=== PATIENT | female | born 1930 | race Caucasian/White ===

== ENCOUNTER 2018-10-15 13:19 | Inpatient (IN) | payer OTHER ==
--- NOTE | 2018-10-15 14:54 | PDOC ---
Attending Attestation - Resident Resident Name: Song Miller - ED Attending Attestation I have performed the following: I have examined & evaluated the patient, The case was reviewed & discussed with the resident, I agree w/resident's findings & plan, Exceptions are as noted - HPI HPI: 88 yo F history dementia, depression, HL, HTN, heart murmur presents s/p fall followed by LOC. As per family member at bedside, she went to her senior center today, they reported she tripped over another person's foot, no LOC. She boarded bus to go home later in the afternoon, where she was witnessed to have LOC, possibly a seizure as described by the internal combustion engine assembler (was unresponsive for a period of time). Patient does not recall any of the events. No post-ictal period. She denies any complaints at present. - Physicial Exam PE: GENERAL: Awake, alert, and fully oriented, in no acute distress HEAD: No signs of trauma EYES: PERRLA, EOMI, sclera anicteric, conjunctiva clear ENT: Auricles normal inspection, hearing grossly normal, nares patent, oropharynx clear without exudates. Moist mucosa NECK: Normal ROM, supple, no lymphadenopathy, JVD, or masses LUNGS: Breath sounds equal, clear to auscultation bilaterally. No wheezes, and no crackles HEART: Regular rate and rhythm, V/ systolic murmur heard best over second ICS ABDOMEN: Soft, nontender, normoactive bowel sounds. No guarding, no rebound. No masses EXTREMITIES: Normal range of motion, no edema. No clubbing or cyanosis. No cords, erythema, or tenderness NEUROLOGICAL: Cranial nerves II through XII grossly intact. Normal speech. Motor and sensation intact SKIN: Warm, dry, normal turgor, no rashes or lesions noted. - Medical Decision Making Pt is s/p fall, then a loss of consciousness later in the afternoon on the bus home. This is more likely syncope, as there was no post-ictal period, and she has no prior history. Also she has multiple cardiac risk factors- HTN, HL, and a murmur that is consistent with aortic stenosis. Will CT her head as we cannot confirm exactly what happened, need to r/o ICH. Will obtain cardiac workup. Plan for admission.
[2018-10-15 15:21] LABS: BASO % 0.3 % (0-2.0); EOS % 0.2 % (0-4.5); HEMATOCRIT 38.8 % (32.4-45.2); HEMOGLOBIN 12.4 GM/dL (10.7-15.3); LYMPH % 5.7 % (8-40); MCH 26.9 pg (25.7-33.7); MCHC 31.9 g/dl (32.0-36.0); MEAN CELL VOLUME 84.4 fl (80-96); MEAN PLT VOLUME 8.3 fl (7.5-11.1); MONO % 3.8 % (3.8-10.2); PLATELET COUNT 246 K/MM3 (134-434); RBC 4.59 M/mm3 (3.60-5.2); RDW 15.4 % (11.6-15.6); WHITE BLOOD COUNT 17.5 K/mm3 (4.0-10.0)
[2018-10-15 15:47] LABS: INR 0.98 (0.83-1.09); PROTHROMBIN TIME (PATIENT) 11.6 SEC (9.7-13.0)
--- NOTE | 2018-10-15 15:49 | PDOC ---
History of Present Illness - General Chief Complaint: Injury Stated Complaint: FALL Time Seen by Provider: 10/15/18 14:33 History Source: Patient, Family Exam Limitations: Dementia - History of Present Illness Initial Comments: 10/15/18 15:41 88F with a PMH of HLD, HTN, dementia, depression, heart murmur who presents to the ER via EMS for fall and possible syncope. The patient is with her son who helps provide the history as the patient does not recall everything that happened. The son states that he was called from her adult day care stating that she fell earlier today after tripping on someone's foot. On her way home as she got on the bus, she had a seizure vs syncope witnessed by the school bus driver. EMS and police were called and she was sent to our facility. She denies any acute complaints right now but states that her R thigh is sore. She denies syncope before/during/after her fall, CP, SOB, fever, chills, nausea, vomiting, cough, and dysuria. Past History - Past Medical History Allergies/Adverse Reactions: Allergies Allergy/AdvReac Type Severity Reaction Status Date / Time No Known Allergies Allergy Verified 07/15/11 21:32 Home Medications: Ambulatory Orders Simvastatin 20 mg PO DAILY 07/15/11 Cholecalciferol (Vitamin D3) [Vitamin D3 -] 2,000 unit PO DAILY 10/15/18 Donepezil HCl [Aricept -] 5 mg PO DAILY 10/15/18 Escitalopram Oxalate [Lexapro -] 10 mg PO DAILY 10/15/18 Ramipril [Altace] 2.5 mg PO DAILY 10/15/18 Anemia: Yes Asthma: No Cancer: No Cardiac Disorders: No CVA: No COPD: No CHF: No Dementia: No Diabetes: No GI Disorders: No Disorders: No HTN: Yes Hypercholesterolemia: No Liver Disease: No Seizures: No Thyroid Disease: No - Surgical History Abdominal Surgery: No Appendectomy: No Cardiac Surgery: No Cholecystectomy: No Lung Surgery: No Neurologic Surgery: No Orthopedic Surgery: No - Suicide/Smoking/Psychosocial Hx Smoking Status: No Smoking History: Unknown if ever smoked Have you smoked in the past 12 months: No Number of Cigarettes Smoked Daily: 0 Hx Alcohol Use: No Drug/Substance Use Hx: No Substance Use Type: None Hx Substance Use Treatment: No Review of Systems - Review of Systems Able to Perform ROS?: Yes Comments:: 10/15/18 16:21 GENERAL/CONSTITUTIONAL: + for fall. No fever or chills. No weakness. HEAD, EYES, EARS, NOSE AND THROAT: No change in vision. No ear pain or discharge. No sore throat. CARDIOVASCULAR: No chest pain, palpitations, or lightheadedness. RESPIRATORY: No cough, wheezing, shortness of breath, or hemoptysis. GASTROINTESTINAL: No abdominal pain, nausea, vomiting, diarrhea, or constipation. GENITOURINARY: No dysuria, frequency, hematuria, or change in urination. MUSCULOSKELETAL: No joint or muscle swelling or pain. No neck or back pain. SKIN: No rash or lesions. NEUROLOGIC: + for LOC. No headache, numbness, tingling, focal weakness, or change in strength/sensation. Is the patient limited Arabic proficient: No *Physical Exam - Vital Signs Last Vital Signs Temp Pulse Resp BP Pulse Ox 98.3 F 74 18 134/86 96 10/15/18 13:22 10/15/18 13:22 10/15/18 13:22 10/15/18 13:22 10/15/18 13:22 - Physical Exam Comments: 10/15/18 16:23 GENERAL: Well developed, well nourished. Awake and alert. No acute distress. HEENT: Normocephalic, atraumatic. Hearing grossly normal. Moist mucous membranes. PERRLA, EOMI. No conjunctival pallor. Sclera are non-icteric. NECK: Supple. Full ROM. No JVD. CARDIOVASCULAR: Regular rate and rhythm. No murmurs, rubs, or gallops. PULMONARY: No evidence of respiratory distress. Lungs clear to auscultation bilaterally. No wheezing, rales or rhonchi. ABDOMINAL: Soft. Non-tender. Non-distended. No rebound or guarding. GENITOURINARY: No CVA tenderness bilaterally. MUSCULOSKELETAL: Normal range of motion at all joints. No bony deformities or tenderness. EXTREMITIES: No cyanosis. No clubbing. No edema. No calf tenderness or swelling. SKIN: Warm and dry. Normal capillary refill. No rashes. No jaundice. NEUROLOGICAL: Alert, awake, appropriate. Cranial nerves 2-12 intact. No deficits to light touch and temperature in face, upper extremities and lower extremities. 5/5 strength in deltoids, biceps, triceps, quadriceps, hamstrings, and gastrocnemius. Normal speech. Gait is normal without ataxia. PSYCHIATRIC: Cooperative. Good eye contact. Appropriate mood and affect. ED Treatment Course - LABORATORY CBC & Chemistry Diagram: 10/15/18 15:00 10/15/18 15:00 - ADDITIONAL ORDERS Additional order review: 10/15/18 15:00 RBC 4.59 MCV 84.4 MCHC 31.9 L RDW 15.4 MPV 8.3 Neutrophils % 90.0 H Lymphocytes % 5.7 L Monocytes % 3.8 Eosinophils % 0.2 Basophils % 0.3 - RADIOLOGY Radiology Studies Ordered: Category Date Time Status HEAD CT WITHOUT CONTRAST [CT] Stat CT Scan 10/15/18 14:47 Completed CHEST - PA [RAD] Stat Radiology 10/15/18 14:48 Ordered FEMUR-RIGHT [RAD] Stat Radiology 10/15/18 14:48 Ordered HIP & PELVIS-RIGHT [RAD] Stat Radiology 10/15/18 14:48 Ordered PELVIS [RAD] Stat Radiology 10/15/18 14:48 Ordered Medical Decision Making - Medical Decision Making 10/15/18 16:23 88F with MMP who presents after having a syncopal vs seizure episode and a fall. Concern for infectious vs cardiac etiology. Will obtain labs and CTH w/ CXR. Pending labs and imaging. Pt well appearing otherwise with son at bedside. 10/15/18 19:03 Pt unable to ambulate. XR's negative. CTH negative. Will obtain pelvic CT. Microblogged for admission. Pt endorsed to Dr. Nugent for admission. *DC/Admit/Observation/Transfer Diagnosis at time of Disposition: Syncope and collapse - Discharge Dispostion Condition at time of disposition: Guarded Decision to Admit order: Yes - Referrals Referrals: Manuel Kinney MD [Primary Care Provider] - - Patient Instructions - Post Discharge Activity
[2018-10-15 16:03] LABS: ALBUMIN 3.7 g/dl (3.4-5.0); ALK PHOS 107 U/L (45-117); ANION GAP 7 MMOL/L (8-16); BILIRUBIN,TOTAL 0.8 mg/dL (0.2-1); BLOOD UREA NITROGEN 18.6 mg/dL (7-18); CHLORIDE 104 mmol/L (98-107); CO2 30 mmol/L (21-32); CREATININE 0.6 mg/dL (0.55-1.3); GLUCOSE,RANDOM 106 mg/dL (74-106); POTASSIUM 4.7 mmol/L (3.5-5.1); SGOT/AST 30 U/L (15-37); SGPT/ALT 16 U/L (13-61); SODIUM 141 mmol/L (136-145); TOT PROT 7.2 g/dl (6.4-8.2)
--- NOTE | 2018-10-15 20:26 | HP ---
CHIEF COMPLAINT: syncopal episode PCP: Dr. Kinney HISTORY OF PRESENT ILLNESS: History obtained with son Jamie at bedside ). Patient is an 88 year old female with history of hypertension, hyperlipidemia, dementia, depression, aortic stenosis, presents after a syncopal episode. Patient's family at bedside state that earlier today (approx. 11AM), the patient experienced a mechanical fall after tripping over pair of shoes. Per the facility staff patient did not hit her head, and was immediately helped up. She endorsed only a 'stiff hip' on the right side at that time. After eating lunch (approx. 12:30PM) patient was taken onto a bus where she experienced feeling lightheaded and became unresponsive for approx. 2 minutes. Patient was sat down on the bus. Patient did not loose bowel or bladder incontinence. Did not bite her tongue. As patient regained consciousness, she was noted to be immediately alert, without post-ictal or confusion state. No history of prior seizures. No recent medication changes. Currently, patient admits right sided hip pain, that is exacerbated by movement. Denies subjective fevers , chills, shortness of breath, chest pain, palpitations, abdominal pain, nausea, vomiting. ER course was notable for: (1) CT head negative for intracranial pathology (2) CT pelvis reveals right inferior pubic ramus and ischiopubic junction fracture (3) Recent Travel: denies PAST MEDICAL HISTORY: hypertension, hyperlipidemia, dementia, depression, aortic stenosis PAST SURGICAL HISTORY: colon perforation repair approx 25 years ago. Social History: Smoking: admits ;heavy smoking' for approx 25 years. Quit 37 years ago. Alcohol: denies Drugs: tracie Lives in [place], visited by her son daily who assists with activities daily living. At baseline, patient ambulates without cane or walker. Family History: Noncontributory. Mother lived until 99 years old father lived until 94 years old. Denies cardiac, or cancer family history. Allergies No Known Allergies Allergy (Verified 07/15/11 21:32) HOME MEDICATIONS: Home Medications Medication Instructions Recorded Simvastatin 20 mg PO DAILY 07/15/11 Cholecalciferol (Vitamin D3) 2,000 unit PO DAILY 10/15/18 [Vitamin D3 -] Donepezil HCl [Aricept -] 5 mg PO DAILY 10/15/18 Escitalopram Oxalate [Lexapro -] 10 mg PO DAILY 10/15/18 Ramipril [Altace] 2.5 mg PO DAILY 10/15/18 REVIEW OF SYSTEMS CONSTITUTIONAL: Absent: fever, chills, diaphoresis, generalized weakness, malaise, loss of appetite, weight change HEENT: Absent: rhinorrhea, nasal congestion, throat pain, throat swelling, difficulty swallowing, mouth swelling, ear pain, eye pain, visual changes CARDIOVASCULAR: Absent: chest pain, syncope, palpitations, irregular heart rate, lightheadedness , peripheral edema RESPIRATORY: Absent: cough, shortness of breath, dyspnea with exertion, orthopnea, wheezing, stridor, hemoptysis GASTROINTESTINAL: Absent: abdominal pain, abdominal distension, nausea, vomiting, diarrhea, constipation, melena, hematochezia GENITOURINARY: Absent: dysuria, frequency, urgency, hesitancy, hematuria, flank pain, genital pain MUSCULOSKELETAL: Admits: right hip pain, soreness. SKIN: Absent: rash, itching, pallor HEMATOLOGIC/IMMUNOLOGIC: Absent: easy bleeding, easy bruising, lymphadenopathy, frequent infections ENDOCRINE: Absent: unexplained weight gain, unexplained weight loss, heat intolerance, cold intolerance NEUROLOGIC: Absent: headache, focal weakness or paresthesias, dizziness, unsteady gait, seizure, mental status changes, bladder or bowel incontinence PSYCHIATRIC: Absent: anxiety, depression, suicidal or homicidal ideation, hallucinations. PHYSICAL EXAMINATION Vital Signs - 24 hr 10/15/18 10/15/18 13:22 19:26 Temperature 98.3 F 97.6 F Pulse Rate 74 Pulse Rate [ 66 Right Superficial Temporal] Respiratory 18 Rate Blood Pressure 134/86 Blood Pressure 147/82 [Left Arm] O2 Sat by Pulse 96 93 L Oximetry (%) GENERAL: Awake, alert, and oriented to self, in no acute distress. HEAD: Normal with no signs of trauma. EYES: Pupils equal, round and reactive to light, extraocular movements intact, sclera anicteric, conjunctiva clear EARS, NOSE, THROAT: Oropharynx clear without exudates. Moist mucous membranes. NECK: Normal range of motion, supple without lymphadenopathy, JVD, or masses. LUNGS: Breath sounds equal, clear to auscultation bilaterally. No wheezes, and no crackles. No accessory muscle use. HEART: Regular rate and rhythm, normal S1 and S2. Holosystolic murmur appreciated at left upper sternal border. ABDOMEN: Soft, nontender, not distended, normoactive bowel sounds, no guarding, no rebound, no masses. No hepatomegaly or splenomegaly. MUSCULOSKELETAL: Tenderness to palpation at right hip. UPPER EXTREMITIES: 2+ radial pulses bilaterally, warm, well-perfused. LOWER EXTREMITIES: 2+ dorsalis pedis pulses bilaterally, warm, well-perfused. No peripheral edema. NEUROLOGICAL: Cranial nerves II-XII intact. Normal speech. PSYCHIATRIC: Cooperative. Appropriate mood and affect. SKIN: Warm, dry. Laboratory Results - last 24 hr 10/15/18 10/15/18 10/15/18 15:00 15:00 15:00 WBC 17.5 H RBC 4.59 Hgb 12.4 Hct 38.8 MCV 84.4 MCH 26.9 MCHC 31.9 L RDW 15.4 Plt Count 246 MPV 8.3 Absolute Neuts (auto) 15.7 H Neutrophils % 90.0 H Lymphocytes % 5.7 L Monocytes % 3.8 Eosinophils % 0.2 Basophils % 0.3 Nucleated RBC % 0 PT with INR 11.60 INR 0.98 Sodium 141 Potassium 4.7 Chloride 104 Carbon Dioxide 30 Anion Gap 7 L BUN 18.6 H Creatinine 0.6 Est GFR (CKD-EPI)AfAm 93.66 Est GFR (CKD-EPI)NonAf 80.81 Random Glucose 106 Calcium 9.0 Total Bilirubin 0.8 AST 30 ALT 16 Alkaline Phosphatase 107 Creatine Kinase 148 Troponin I < 0.02 Total Protein 7.2 Albumin 3.7 ASSESSMENT/PLAN: Patient is an 88 year old female with history of hypertension, hyperlipidemia, dementia, depression, aortic stenosis, presents after a syncopal episode. Syncopal episode -Uncertain etiology of the episode; most likely cardiogenic given history of aortic stenosis. Less likely seizure, as patient was not post-ictal. WBC count 17.5 however likely reactive to the fracture. Will monitor off antibiotics, and repeat -CT head negative for acute intracranial pathology -EKG -Troponin 0.02. Will follow. -Cardiac ECHO -Cardiology (Dr. theodore) consult -Telemetry monitoring -Orthostatic blood pressure -Ofirmev 1000mg IV Q6 hours for pain control Fracture -CT pelvis reveals right inferior pubic ramus fracture and, right superior ischiopubic junction fracture -Orthopedic surgery (Dr. Hunt) consulted -Strict bed rest -NPO -Type and cross, coagulation studies ordered in anticipation of possible surgical procedure Dementia -Continue home Donepezil 5mg PO daily -Continue Escitalopram 10mg PO daily Hyperlipidemia -Continue Simvastatin 20mg PO daily Right adnexal cyst -Incidental finding on CT. Patient will follow up with OBGYN outpatient Hypertension -Continue home Ramipril 2.5mg PO daily FEN -IV normal saline at 75mL/ hour -Follow CMP -NPO after midnight pending orthopedic surgery consult Prophylaxis -Heparin 5000u subq TID. Will hold after midnight pending orthopedic surgery consult Disposition -Admit Telemetry for observation. Visit type - Emergency Visit Emergency Visit: Yes ED Registration Date: 10/15/18 Care time: The patient presented to the Emergency Department on the above date and was hospitalized for further evaluation of their emergent condition. - New Patient This patient is new to me today: Yes Date on this admission: 10/16/18 - Critical Care Critical Care patient: No ATTENDING PHYSICIAN STATEMENT I saw and evaluated the patient. I reviewed the resident's note and discussed the case with the resident. I agree with the resident's findings and plan as documented. SUBJECTIVE: OBJECTIVE: ASSESSMENT AND PLAN:
[2018-10-15] MEDS ORDERED: SODIUM CHLORIDE 1,000 ML IV SCH (20:30)
--- NOTE | 2018-10-15 22:22 | PN ---
Teaching Attending Note Name of Resident: Thai Roman ATTENDING PHYSICIAN STATEMENT I saw and evaluated the patient. Chart, data, imaging reviewed. I reviewed the resident's note and discussed the case with the resident. I agree with the resident's findings and plan as documented. SUBJECTIVE: 88 year old female with history of hypertension, hyperlipidemia, dementia, depression, aortic stenosis brought in by EMS after mechanical fall earlier in day, after tripping over pair of shoes, followed by syncopal episode while on bus. She felt lightheaded prior to syncope but did not experience any palpitations. OBJECTIVE: Last Vital Signs Temp Pulse Resp BP Pulse Ox 97.6 F 74 18 146/74 95 10/15/18 23:51 10/15/18 23:51 10/15/18 13:22 10/15/18 23:51 10/15/18 23:51 general- nad, nontoxic heent- atraumatic neck supple, no cervical tenderness cv -s1+, s2+ rrr, systolic crescendo-decrescendo murmur chest- cta b/l abdomen - soft, nt ext no tenderness of palpation Abnormal Lab Results 10/15/18 10/15/18 15:00 15:00 WBC 17.5 H MCHC 31.9 L Absolute Neuts (auto) 15.7 H Neutrophils % 90.0 H Lymphocytes % 5.7 L Anion Gap [address] head negative for intracranial pathology CT pelvis reveals right inferior pubic ramus and ischiopubic junction fracture ekg -nsr, LVH , left axis deviation ASSESSMENT AND PLAN: #mechanical fall + syncope episode in elderly demented woman, complicated by fracture of right inferior pubic ramus. Fracture likely related to previous fall. Syncopal episode by be secondary to underlying aortic stenosis. Other causes include orthostatic hypotension, vasogal syncopal. tros wnl. -tele-obs -fall precautions -bed rest -check orthostatics -gentle IV fluid hydration -Echo -asssess for worsening of aortic stenosis -cardiology eval- for possible aortic valve replacement -orthopedics consult for pubic ramus fracture -dvt ppx -heparin sc
[2018-10-15] MEDS ORDERED: ACETAMINOPHEN INJECTION 100 ML IVPB ONE (22:30)
[2018-10-15] MEDS ORDERED: HEPARIN NA (PORCINE) 5,000 UNITS/ML 1ML VIAL ONE (22:31)
[2018-10-15] MEDS: HEPARIN NA (PORCINE) 5,000 UNITS/ML 1ML VIAL SQ SCH (22:59)
[2018-10-15] MEDS: ACETAMINOPHEN 1000 MG/100 ML VIAL (NON FORMULARY) IVPB PRN (23:00)
[2018-10-16] MEDS ORDERED: ACETAMINOPHEN INJECTION 100 ML IVPB ONE (06:29)
[2018-10-16] MEDS ORDERED: HEPARIN NA (PORCINE) 5,000 UNITS/ML 1ML VIAL ONE (06:29)
[2018-10-16] MEDS: HEPARIN NA (PORCINE) 5,000 UNITS/ML 1ML VIAL SQ SCH ×3 (06:43→22:44)
[2018-10-16] MEDS: ACETAMINOPHEN 1000 MG/100 ML VIAL (NON FORMULARY) IVPB PRN (06:43)
[2018-10-16] MEDS: DONEPEZIL HCL 5 MG TABLET (FP) PO SCH (09:14)
[2018-10-16] MEDS: ESCITALOPRAM OXALATE 10 MG TABLET (FP) PO SCH (09:14)
[2018-10-16] MEDS: RAMIPRIL 2.5 MG CAPSULE (FP) PO SCH (09:14)
[2018-10-16 09:32] LABS: HEMATOCRIT 31.7 % (32.4-45.2); HEMOGLOBIN 10.5 GM/dL (10.7-15.3); MCH 27.7 pg (25.7-33.7); MEAN PLT VOLUME 8.2 fl (7.5-11.1); PLATELET COUNT 203 K/MM3 (134-434); RBC 3.78 M/mm3 (3.60-5.2); RDW 15.3 % (11.6-15.6); WHITE BLOOD COUNT 8.8 K/mm3 (4.0-10.0)
[2018-10-16 09:46] LABS: INR 1.12 (0.83-1.09); PROTHROMBIN TIME (PATIENT) 13.2 SEC (9.7-13.0)
[2018-10-16 09:48] LABS: ACTIVATED PTT 44.8 SECONDS (25.2-36.5)
[2018-10-16] MEDS ORDERED: PATIENT'S OWN MEDICATION (NON-FORMULARY) (Simvastatin [Simvastatin] 20 MG) PO SCH (10:00)
[2018-10-16 10:15] LABS: ALBUMIN 3.3 g/dl (3.4-5.0); BILIRUBIN,TOTAL 1.4 mg/dL (0.2-1); CALCIUM 8.7 mg/dL (8.5-10.1); CREATININE 0.6 mg/dL (0.55-1.3); MAGNESIUM 2.2 mg/dL (1.8-2.4); PHOSPHOROUS 3.2 mg/dL (2.5-4.9); POTASSIUM 4.8 mmol/L (3.5-5.1); TOT PROT 6.2 g/dl (6.4-8.2)
--- NOTE | 2018-10-16 11:59 | DS ---
Physical Exam: SUBJECTIVE: Patient seen and examined OBJECTIVE: Vital Signs Period Temp Pulse Resp BP Sys/Marks Pulse Ox Last 24 Hr 97.6 F-98.3 F 66-75 16-18 124-152/64-86 93-96 PHYSICAL EXAM GENERAL: The patient is awake, alert, and fully oriented, in no acute distress. HEAD: Normal with no signs of trauma. EYES: PERRL, extraocular movements intact, sclera anicteric, conjunctiva clear. ENT: Ears normal, nares patent, oropharynx clear without exudates, moist mucous membranes. NECK: Trachea midline, full range of motion, supple. LUNGS: Breath sounds equal, clear to auscultation bilaterally, no wheezes, no crackles, no accessory muscle use. HEART: Regular rate and rhythm, S1, S2 without murmur, rub or gallop. ABDOMEN: Soft, nontender, nondistended, normoactive bowel sounds, no guarding, no rebound, no hepatosplenomegaly, no masses. EXTREMITIES: 2+ pulses, warm, well-perfused, no edema. NEUROLOGICAL: Cranial nerves II through XII grossly intact. Normal speech, gait not observed. PSYCH: Normal mood, normal affect. SKIN: Warm, dry, normal turgor, no rashes or lesions noted. LABS Laboratory Results - last 24 hr 10/15/18 10/15/18 10/15/18 15:00 15:00 15:00 WBC 17.5 H RBC 4.59 Hgb 12.4 Hct 38.8 MCV 84.4 MCH 26.9 MCHC 31.9 L RDW 15.4 Plt Count 246 MPV 8.3 Absolute Neuts (auto) 15.7 H Neutrophils % 90.0 H Lymphocytes % 5.7 L Monocytes % 3.8 Eosinophils % 0.2 Basophils % 0.3 Nucleated RBC % 0 PT with INR 11.60 INR 0.98 PTT (Actin FS) Sodium 141 Potassium 4.7 Chloride 104 Carbon Dioxide 30 Anion Gap 7 L BUN 18.6 H Creatinine 0.6 Est GFR (CKD-EPI)AfAm 93.66 Est GFR (CKD-EPI)NonAf 80.81 Random Glucose 106 Calcium 9.0 Phosphorus Magnesium Total Bilirubin 0.8 AST 30 ALT 16 Alkaline Phosphatase 107 Creatine Kinase 148 Troponin I < 0.02 Total Protein 7.2 Albumin 3.7 Blood Type Antibody Screen 09/07/2810/16/18 10/16/18 20:25 08:55 08:55 WBC 8.8 RBC 3.78 Hgb 10.5 L Hct 31.7 L D MCV 84.0 MCH 27.7 MCHC 33.0 RDW 15.3 Plt Count 203 MPV 8.2 Absolute Neuts (auto) Neutrophils % Lymphocytes % Monocytes % Eosinophils % Basophils % Nucleated RBC % PT with INR 13.20 H INR 1.12 H PTT (Actin FS) 44.8 H Sodium Potassium Chloride Carbon Dioxide Anion Gap BUN Creatinine Est GFR (CKD-EPI)AfAm Est GFR (CKD-EPI)NonAf Random Glucose Calcium Phosphorus Magnesium Total Bilirubin AST ALT Alkaline Phosphatase Creatine Kinase Troponin I < 0.02 Total Protein Albumin Blood Type Antibody Screen 10/16/18 10/16/18 08:55 08:55 WBC RBC Hgb Hct MCV MCH MCHC RDW Plt Count MPV Absolute Neuts (auto) Neutrophils % Lymphocytes % Monocytes % Eosinophils % Basophils % Nucleated RBC % PT with INR INR PTT (Actin FS) Sodium 145 Potassium 4.8 Chloride 106 Carbon Dioxide 31 Anion Gap 8 BUN 20.0 H Creatinine 0.6 Est GFR (CKD-EPI)AfAm 93.66 Est GFR (CKD-EPI)NonAf 80.81 Random Glucose 102 Calcium 8.7 Phosphorus 3.2 Magnesium 2.2 Total Bilirubin 1.4 H AST 18 ALT 12 L Alkaline Phosphatase 88 Creatine Kinase Troponin I Total Protein 6.2 L Albumin 3.3 L Blood Type O POSITIVE Antibody Screen Negative HOSPITAL COURSE: Date of Admission:10/15/18 Date of Discharge: 10/16/18 admitting diagnosis: syncope, pelvic fracture Pre hospital course Patient is an 88 year old female with history of hypertension, hyperlipidemia, dementia, depression, aortic stenosis, presents after a syncopal episode. Patient's family at bedside state that earlier today (approx. 11AM), the patient experienced a mechanical fall after tripping over pair of shoes. Per the facility staff patient did not hit her head, and was immediately helped up. She endorsed only a 'stiff hip' on the right side at that time. After eating lunch (approx. 12:30PM) patient was taken onto a bus where she experienced feeling lightheaded and became unresponsive for approx. 2 minutes. Patient was sat down on the bus. Patient did not loose bowel or bladder incontinence. Did not bite her tongue. As patient regained consciousness, she was noted to be immediately alert, without post-ictal or confusion state. No history of prior seizures. No recent medication changes. Currently, patient admits right sided hip pain, that is exacerbated by movement. Denies subjective fevers , chills, shortness of breath, chest pain, palpitations, abdominal pain, nausea, vomiting. Subsequent hospital course Minutes to complete discharge: 40 Discharge Summary Reason For Visit: SYNCOPE AND COLLAPSE Current Active Problems Pelvic fracture (Acute) Syncope and collapse (Acute) Condition: Guarded - Instructions Diet, Activity, Other Instructions: You came to the hospital because you passed out and syncopized. On workup here it was found you had 2 pelvic fractures. You requested to be [facility] to [facility]. Dr Zamora accepted your care Follow up recommendations given by the hospital follow up with your primary care doctor after discharge from their facility Referrals: Manuel Kinney MD [Primary Care Provider] - Disposition: TRANSFER ACUTE CARE/OTHER HOSP - Home Medications Comprehensive Discharge Medication List: Ambulatory Orders Simvastatin 20 mg PO DAILY 07/15/11 Cholecalciferol (Vitamin D3) [Vitamin D3 -] 2,000 unit PO DAILY 10/15/18 Donepezil HCl [Aricept -] 5 mg PO DAILY 10/15/18 Escitalopram Oxalate [Lexapro -] 10 mg PO DAILY 10/15/18 Ramipril [Altace] 2.5 mg PO DAILY 10/15/18
--- NOTE | 2018-10-16 13:33 | CON.CARD ---
Consult Consult Specialty:: Cardiology Referred by:: Hospitalist Reason for Consultation:: Cardiac evaluation - History of Present Illness Chief Complaint: ? syncope vs. mechanical fall History of Present Illness: Patient is an 88 year old female with underlying history of HTN, hypercholesterolemia and aortic stenosis (according to echocardiography in June 2017) who presents after a mechanical fall yesterday. She states that she tripped over a pair of shoes and it occurred in the morning. Later yesterday as she was taken onto a bus, she experienced lightheadedness and became unresponsive for approximately 2 minutes. She did not experience incontinence or any seizure activities. She did not complain of chest pain, shortness of breath or palpitations. Currently, she is asymptomatic. Hip and femur xray did not reveal any fractures, however; pelvic CT revealed right pubic ramus fracture. Prior echocardiography in June 2017 revealed normal LV systolic function, modertate and moderate MR. Currently, denies fever or chills. Denies nausea, vomiting, diarrhea or abdominal pain. Denies headache or lightheadedness. Family member had called for a transfer to [facility] for further medical care. - History Source History Provided By: Patient, Family Member, Medical Record Limitations to Obtaining History: Dementia - Past Medical History GRAD INTERN: Yes: Dementia Cardio/Vascular: Yes: Aortic Stenosis, HTN, Hyperlipdemia, Mitral Insufficiency - Past Surgical History Additional Surgical History: Colon surgery - Alcohol/Substance Use Hx Alcohol Use: No History of Substance Use: reports: None - Smoking History Smoking history: Former smoker Have you smoked in the past 12 months: No Aproximately how many cigarettes per day: 0 Home Medications - Allergies Allergies/Adverse Reactions: Allergies Allergy/AdvReac Type Severity Reaction Status Date / Time No Known Allergies Allergy Verified 07/15/11 21:32 - Home Medications Home Medications: Ambulatory Orders Simvastatin 20 mg PO DAILY 07/15/11 Cholecalciferol (Vitamin D3) [Vitamin D3 -] 2,000 unit PO DAILY 10/15/18 Donepezil HCl [Aricept -] 5 mg PO DAILY 10/15/18 Escitalopram Oxalate [Lexapro -] 10 mg PO DAILY 10/15/18 Ramipril [Altace] 2.5 mg PO DAILY 10/15/18 Review of Systems - Review of Systems Constitutional: denies: Chills, Fever Cardiovascular: denies: Chest Pain, Palpitations, Shortness of Breath Respiratory: denies: Cough, Hemoptysis, Orthopnea, PND, SOB, SOB on Exertion Gastrointestinal: denies: Abdominal Pain, Constipation, Diarrhea, Melena, Nausea , Rectal Bleeding, Vomiting Neurological: reports: Syncope. denies: Dizziness, Headache, Seizure Vital Signs: Vital Signs Temperature 98.2 F 10/16/18 13:28 Pulse Rate 73 10/16/18 13:28 Respiratory Rate 18 10/16/18 07:51 Blood Pressure 133/66 10/16/18 13:28 O2 Sat by Pulse Oximetry (%) 93 L 10/16/18 13:28 Eyes: Yes: PERRL HENT: Yes: Atraumatic Neck: Yes: Supple Respiratory: Yes: CTA Bilaterally Gastrointestinal: Yes: Normal Bowel Sounds, Soft. No: Tenderness Cardiovascular: Yes: Regular Rate and Rhythm JVD: No PMI: Non-Displaced Heart Sounds: Yes: S1, S2 Murmur: Yes: Systolic Murmur, Grade 2 Edema: No - Other Data Labs, Other Data: CBC, BMP 10/16/18 08:55 10/16/18 08:55 INR, PTT INR 1.12 (0.83-1.09) H 10/16/18 08:55 Troponin, BNP 10/15/18 10/15/18 15:00 20:25 Troponin I < 0.02 < 0.02 Laboratory Results - last 24 hr 10/15/18 10/15/18 10/15/18 15:00 15:00 15:00 WBC 17.5 H RBC 4.59 Hgb 12.4 Hct 38.8 MCV 84.4 MCH 26.9 MCHC 31.9 L RDW 15.4 Plt Count 246 MPV 8.3 Absolute Neuts (auto) 15.7 H Neutrophils % 90.0 H Lymphocytes % 5.7 L Monocytes % 3.8 Eosinophils % 0.2 Basophils % 0.3 Nucleated RBC % 0 PT with INR 11.60 INR 0.98 PTT (Actin FS) Sodium 141 Potassium 4.7 Chloride 104 Carbon Dioxide 30 Anion Gap 7 L BUN 18.6 H Creatinine 0.6 Est GFR (CKD-EPI)AfAm 93.66 Est GFR (CKD-EPI)NonAf 80.81 Random Glucose 106 Calcium 9.0 Phosphorus Magnesium Total Bilirubin 0.8 AST 30 ALT 16 Alkaline Phosphatase 107 Creatine Kinase 148 Troponin I < 0.02 Total Protein 7.2 Albumin 3.7 Blood Type Antibody Screen 10/15/18 10/16/18 10/16/18 20:25 08:55 08:55 WBC 8.8 RBC 3.78 Hgb 10.5 L Hct 31.7 L D MCV 84.0 MCH 27.7 MCHC 33.0 RDW 15.3 Plt Count 203 MPV 8.2 Absolute Neuts (auto) Neutrophils % Lymphocytes % Monocytes % Eosinophils % Basophils % Nucleated RBC % PT with INR 13.20 H INR 1.12 H PTT (Actin FS) 44.8 H Sodium Potassium Chloride Carbon Dioxide Anion Gap BUN Creatinine Est GFR (CKD-EPI)AfAm Est GFR (CKD-EPI)NonAf Random Glucose Calcium Phosphorus Magnesium Total Bilirubin AST ALT Alkaline Phosphatase Creatine Kinase Troponin I < 0.02 Total Protein Albumin Blood Type Antibody Screen 10/16/18 10/16/18 08:55 08:55 WBC RBC Hgb Hct MCV MCH MCHC RDW Plt Count MPV Absolute Neuts (auto) Neutrophils % Lymphocytes % Monocytes % Eosinophils % Basophils % Nucleated RBC % PT with INR INR PTT (Actin FS) Sodium 145 Potassium 4.8 Chloride 106 Carbon Dioxide 31 Anion Gap 8 BUN 20.0 H Creatinine 0.6 Est GFR (CKD-EPI)AfAm 93.66 Est GFR (CKD-EPI)NonAf 80.81 Random Glucose 102 Calcium 8.7 Phosphorus 3.2 Magnesium 2.2 Total Bilirubin 1.4 H AST 18 ALT 12 L Alkaline Phosphatase 88 Creatine Kinase Troponin I Total Protein 6.2 L Albumin 3.3 L Blood Type O POSITIVE Antibody Screen Negative NSR, nonspecific intraventricular conduction delay Imaging - Results Chest X-ray: Report Reviewed (Unremarkable) X-ray: Report Reviewed (Hip and femur xray no fracture) Cat Scan: Report Reviewed (Head CT unremarkable Pelvic CT right pubic ramus fracture) EKG: Report Reviewed Problem List - Problems (1) HTN (hypertension) Code(s): I10 - ESSENTIAL (PRIMARY) HYPERTENSION (2) Hypercholesterolemia Code(s): E78.00 - PURE HYPERCHOLESTEROLEMIA, UNSPECIFIED (3) Aortic valve stenosis Code(s): I35.0 - NONRHEUMATIC AORTIC (VALVE) STENOSIS Qualifiers: Cardiac valve disease etiology: nonrheumatic Qualified Code(s): I35.0 - Nonrheumatic aortic (valve) stenosis (4) Mitral valve regurgitation Code(s): I34.0 - NONRHEUMATIC MITRAL (VALVE) INSUFFICIENCY Qualifiers: Cardiac valve disease etiology: nonrheumatic Qualified Code(s): I34.0 - Nonrheumatic mitral (valve) insufficiency (5) Pelvic fracture Code(s): S32.9XXA - FRACTURE OF UNSP PARTS OF LUMBOSACRAL SPINE AND PELVIS, INIT (6) Syncope and collapse Code(s): R55 - SYNCOPE AND COLLAPSE Assessment/Plan 1. Post mechanical fall resulting in pubic ramus fracture 2. Syncope 3. Moderate (prior echocardiography) 4. HTN 5. Hypercholesterolemia 6. Dementia PLAN: 1. Patient is being transferred to [facility] as per family decision 2. Patient will need a transthoracic echocardiography to assess LV/RV and valvular function especially aortic valve stenosis. If it is not done inpatient , they were offered to be followed up in the office for an outpatient stud 3. Continue ACEI as tolerated 4. Statin therapy may be continued 5. Fall precaution 6. Likely bed rest for now for the pubic ramus fracture Further plans are to follow. Thank you for the consultation Giuseppe Mcdaniel MD
--- NOTE | 2018-10-16 14:07 | PN ---
Progress Note (short form) - Note Progress Note: asymptomatic. states she had no symptoms prior to the fall. was c/o R hip pain after the fall and inability to bear weight.denies CP, SOB, fever, chills, N/V/C /D Current Medications Generic Name Dose Route Start Last Admin Trade Name Freq PRN Reason Stop Dose Admin Acetaminophen 1,000 mg 10/15/18 21:16 10/16/18 06:43 Ofirmev Injection - IVPB 1,000 mg Q6H PRN Administration PAIN LEVEL 1-5 Atorvastatin Calcium 10 mg 10/16/18 22:00 Lipitor - PO HS BRIAN Donepezil HCl 5 mg 10/16/18 10:00 10/16/18 09:14 Aricept - PO 5 mg DAILY BRIAN Administration Escitalopram Oxalate 10 mg 10/16/18 10:00 10/16/18 09:14 Lexapro - PO 10 mg DAILY BRIAN Administration Heparin Sodium (Porcine) 5,000 unit 10/15/18 22:00 10/16/18 06:43 Heparin - SQ 5,000 unit TID BRIAN Administration Ramipril 2.5 mg 10/16/18 10:00 10/16/18 09:14 Altace - PO 2.5 mg DAILY BRIAN Administration Last Vital Signs Temp Pulse Resp BP Pulse Ox 98.2 F 73 18 133/66 93 L 10/16/18 13:28 10/16/18 13:28 10/16/18 07:51 10/16/18 13:28 10/16/18 13:28 General NAD, [place], A&O to self only CV S1 S2 RRR +murmur Lungs CTA anteriorly abdomen soft NT/ND extremities non pitting edema. no R hip tenderness. decreased strength RLE 2/5, sensation intact. pulse 2+ CBCD WBC 8.8 K/mm3 (4.0-10.0) 10/16/18 08:55 RBC 3.78 M/mm3 (3.60-5.2) 10/16/18 08:55 Hgb 10.5 GM/dL (10.7-15.3) L 10/16/18 08:55 Hct 31.7 % (32.4-45.2) L D 10/16/18 08:55 MCV 84.0 fl (80-96) 10/16/18 08:55 MCHC 33.0 g/dl (32.0-36.0) 10/16/18 08:55 RDW 15.3 % (11.6-15.6) 10/16/18 08:55 Plt Count 203 K/MM3 (134-434) 10/16/18 08:55 MPV 8.2 fl (7.5-11.1) 10/16/18 08:55 CMP Sodium 145 mmol/L (136-145) 10/16/18 08:55 Potassium 4.8 mmol/L (3.5-5.1) 10/16/18 08:55 Chloride 106 mmol/L (98-107) 10/16/18 08:55 Carbon Dioxide 31 mmol/L (21-32) 10/16/18 08:55 Anion Gap 8 MMOL/L (8-16) 10/16/18 08:55 BUN 20.0 mg/dL (7-18) H 10/16/18 08:55 Creatinine 0.6 mg/dL (0.55-1.3) 10/16/18 08:55 Calcium 8.7 mg/dL (8.5-10.1) 10/16/18 08:55 Total Bilirubin 1.4 mg/dL (0.2-1) H 10/16/18 08:55 AST 18 U/L (15-37) 10/16/18 08:55 ALT 12 U/L (13-61) L 10/16/18 08:55 Alkaline Phosphatase 88 U/L (45-117) 10/16/18 08:55 Total Protein 6.2 g/dl (6.4-8.2) L 10/16/18 08:55 Albumin 3.3 g/dl (3.4-5.0) L 10/16/18 08:55 A/P 88yo F wtih PMH hypertension, hyperlipidemia, dementia, depression, aortic stenosis, presents after a syncopal episode and found to have pelvic fracture x2 1. Syncope vs mechanical fall- unclear if she had symptoms prior to event as pt is a poor historian,. appears to have known moderate in 2018 and could play a role. will place on cardiac monitoring, check echo. may need valve surgery. cardio on board 2. Acute pelvic fracture- right inferior pubic ramus and ischiopubic junction fracture due to fall. NWB and bedrest for now. pain control. likely not operable. ortho consulted. will need PT assessment may likely benefit from ANGEL 3. Leukcytosis- likely reactive. now resolved. will check UA as this can also add to HPI. will hold abx at this time 4. ANemia- likely dilutional. no signs of bleeding. no indication for transfusion 5. HTN- resume home medications 6. Dyslipidemia- statin 7. dementia- as per son seems more confused than baseline but states "shes nervous" but is typically A&O x3. cont home medication 8. DVT ppx- hep sq 9. spoke with son present at bedside. all questions answered. initially wanted transfer to [place] becuase it was taking too long to get bed upstairs and was accepted however now willing to stay. agreeable to ANGEL if necessary Visit type - Emergency Visit Emergency Visit: Yes ED Registration Date: 10/15/18 Care time: The patient presented to the Emergency Department on the above date and was hospitalized for further evaluation of their emergent condition. - New Patient This patient is new to me today: Yes Date on this admission: 10/16/18 - Critical Care Critical Care patient: No - Discharge Referral Referred to [facility] Med P.C.: No
[2018-10-16] MEDS ORDERED: ACETAMINOPHEN 325 MG TABLET (FP) PO PRN (14:16)
[2018-10-16 15:06] VITALS: BMI 29.0
[2018-10-16] MEDS ORDERED: HALOPERIDOL LACTATE 5 MG/ML IM ONE (20:53)
--- NOTE | 2018-10-16 21:24 | RAPID ---
Physical Examination Vital Signs: Vital Signs Temperature 98.7 F 10/16/18 14:28 Pulse Rate 79 10/16/18 14:28 Respiratory Rate 18 10/16/18 14:28 Blood Pressure 136/64 10/16/18 14:28 O2 Sat by Pulse Oximetry (%) 93 L 10/16/18 13:28 Labs: CBC, BMP 10/16/18 08:55 10/16/18 08:55 Rapid Response - Rapid Response Assessment: Rapid Response called for Pt. being agitated and RN being unable to get in contact with physician. Pt. climbing out of bed pulling off EKG leads and requesting to speak to her son. Pt. given 5mg Haldol.
[2018-10-16] MEDS: ATORVASTATIN CA 10 MG TABLET (FP) PO SCH (22:44)
[2018-10-17] MEDS ORDERED: HALOPERIDOL LACTATE 5 MG/ML IM ONE (02:13)
[2018-10-17] MEDS: HEPARIN NA (PORCINE) 5,000 UNITS/ML 1ML VIAL SQ SCH ×3 (06:04→21:42)
[2018-10-17 07:19] LABS: BLOOD UREA NITROGEN 14.2 mg/dL (7-18); CALCIUM 8.6 mg/dL (8.5-10.1); CREATININE 0.5 mg/dL (0.55-1.3)
--- NOTE | 2018-10-17 07:22 | CON.ORTH ---
Consult Consult Specialty:: Orthopedics Reason for Consultation:: Pubic rami fracture - History of Present Illness Chief Complaint: right hip pain History of Present Illness: This is an 88 yo F with PMHx for dementia, HTN, HLD and aortic stenosis who presented to ED s/p syncopal episode with previous mechanical fall earlier that same day. History obtained from medical record and nursing staff. Patient [facility] center when she tripped over a pair of shoes, falling onto right hip. Patient is lying comfortably in bed. She does not have any recollection of a fall and states she is going dancing [employer]. Has no complaints of pain at this time. 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 Cardio/Vascular: Yes: Aortic Stenosis, HTN, Hyperlipdemia, Mitral Insufficiency - Past Surgical History Additional Surgical History: Colon surgery - Alcohol/Substance Use Hx Alcohol Use: No History of Substance Use: reports: None - Smoking History Smoking history: Former smoker Have you smoked in the past 12 months: No Aproximately how many cigarettes per day: 0 <Aspen Rubio - Last Filed: 10/17/18 07:42> Home Medications <Aspen Rubio - Last Filed: 10/17/18 07:42> <Zoltan Naylor K - Last Filed: 10/17/18 08:24> - Allergies Allergies/Adverse Reactions: Allergies Allergy/AdvReac Type Severity Reaction Status Date / Time No Known Allergies Allergy Verified 07/15/11 21:32 - Home Medications Home Medications: Ambulatory Orders Simvastatin 20 mg PO DAILY 07/15/11 Cholecalciferol (Vitamin D3) [Vitamin D3 -] 2,000 unit PO DAILY 10/15/18 Donepezil HCl [Aricept -] 5 mg PO DAILY 10/15/18 Escitalopram Oxalate [Lexapro -] 10 mg PO DAILY 10/15/18 Ramipril [Altace] 2.5 mg PO DAILY 10/15/18 Review of Systems Unable to obtain ROS, reason: History of dementia <Aspen Rubio - Last Filed: 10/17/18 07:42> Physical Exam for Ortho Vital Signs: Vital Signs Temperature 98.7 F 10/17/18 02:00 Pulse Rate 88 10/17/18 02:00 Respiratory Rate 20 10/17/18 02:00 Blood Pressure 157/93 10/17/18 02:00 O2 Sat by Pulse Oximetry (%) 95 10/17/18 04:00 Labs: CBC, BMP 10/17/18 05:30 INR, PTT INR 1.12 (0.83-1.09) H 10/16/18 08:55 - Lower Extremity Hip: Yes: Other (B/L LE examination shows areas of eccymosis to right lateral leg. No skin lesions to left LE. Nontender throughout. Full pain free ROM of B/ L hips, knees and ankles. NVID. ) <Aspen Rubio - Last Filed: 10/17/18 07:42> Vital Signs: Vital Signs Temperature 98.7 F 10/17/18 02:00 Pulse Rate 88 10/17/18 02:00 Respiratory Rate 20 10/17/18 02:00 Blood Pressure 157/93 10/17/18 02:00 O2 Sat by Pulse Oximetry (%) 95 10/17/18 04:00 Labs: CBC, BMP 10/17/18 05:30 10/17/18 05:30 INR, PTT INR 1.12 (0.83-1.09) H 10/16/18 08:55 <Zoltan Naylor - Last Filed: 10/17/18 08:24> Imaging - Results X-ray: Report Reviewed (CT pelvis shows acute right inferior pubic ramus and ischiopubic junction fracture), Image Reviewed <Aspen Rubio - Last Filed: 10/17/18 07:42> Problem List - Problems (1) Pelvic fracture Code(s): S32.9XXA - FRACTURE OF UNSP PARTS OF LUMBOSACRAL SPINE AND PELVIS, INIT <Aspen Rubio - Last Filed: 10/17/18 07:42> Assessment/Plan This is an 88 yo F with PMHx for dementia, HTN, HLD and aortic stenosis who was admitted for syncope workup and found to have acute right inferior pubic rami and ischiopubic junction fractures on pelvic CT. Patient is a poor historian due to history of dementia. Has no complaints of pain at this time. -Reviewed case with Dr. Naylor -On evaluation, patient has full pain free ROM of B/L LE. Nontender throughout -Ordered PT -WBAT with walker -Pain control -Okay to be discharged to rehab from ortho standpoint -F/u outpatient <Aspen Rubio - Last Filed: 10/17/18 07:42> Addendum: I personally evaluated the patient and reviewed the imaging findings. Agree with plan as above. PT/WBAT/Dispo planning. DVT prophylaxis as per medical team. <Zoltan Naylor - Last Filed: 10/17/18 08:24>
[2018-10-17 07:31] LABS: BASO % 0.4 % (0-2.0); EOS % 0.9 % (0-4.5); HEMATOCRIT 31.7 % (32.4-45.2); HEMOGLOBIN 10.5 GM/dL (10.7-15.3); LYMPH % 10.8 % (8-40); MCH 27.8 pg (25.7-33.7); MEAN CELL VOLUME 84.4 fl (80-96); MONO % 6.1 % (3.8-10.2); NEUT % 81.8 % (42.8-82.8); PLATELET COUNT 171 K/MM3 (134-434); RBC 3.76 M/mm3 (3.60-5.2); RDW 15.3 % (11.6-15.6); WHITE BLOOD COUNT 9.5 K/mm3 (4.0-10.0)
--- NOTE | 2018-10-17 10:02 | PN ---
Progress Note, Physician Chief Complaint: Events noted Haldol was given during rapid response last night for agitation Currently appears comfortable but restrained History of Present Illness: Patient was seen and examined. Awake. Chart was reviewed Underlying organic brain/dementia Denies chest pain, SOB or palpitations - Current Medication List Current Medications: Active Medications Acetaminophen (Tylenol -) 650 mg PO Q4H PRN PRN Reason: PAIN Last Admin: 10/16/18 20:34 Dose: 650 mg Atorvastatin Calcium (Lipitor -) 10 mg PO HS [facility] Last Admin: 10/16/18 22:44 Dose: 10 mg Donepezil HCl (Aricept -) 5 mg PO DAILY [facility] Last Admin: 10/16/18 09:14 Dose: 5 mg Escitalopram Oxalate (Lexapro -) 10 mg PO DAILY [facility] Last Admin: 10/16/18 09:14 Dose: 10 mg Heparin Sodium (Porcine) (Heparin -) 5,000 unit SQ TID [facility] Last Admin: 10/17/18 06:04 Dose: 5,000 unit Ramipril (Altace -) 2.5 mg PO DAILY [facility] Last Admin: 10/16/18 09:14 Dose: 2.5 mg - Objective Vital Signs: Vital Signs Temperature 98.7 F 10/17/18 02:00 Pulse Rate 88 10/17/18 02:00 Respiratory Rate 20 10/17/18 02:00 Blood Pressure 157/93 10/17/18 02:00 O2 Sat by Pulse Oximetry (%) 95 10/17/18 04:00 HENT: Yes: Atraumatic Neck: Yes: Supple Cardiovascular: Yes: Regular Rate and Rhythm, Murmur (2-3/6 YEN), S1, S2 Respiratory: Yes: CTA Bilaterally Gastrointestinal: Yes: Normal Bowel Sounds, Soft. No: Tenderness Edema: No Additional Findings/Remarks: - Review of Systems Constitutional: denies: Chills, Fever Cardiovascular: denies: Chest Pain, Palpitations, Shortness of Breath Respiratory: denies: Cough, Hemoptysis, Orthopnea, PND, SOB, SOB on Exertion Gastrointestinal: denies: Abdominal Pain, Constipation, Diarrhea, Melena, Nausea , Rectal Bleeding, Vomiting Neurological: reports: Syncope. denies: Dizziness, Headache, Seizure Labs: CBC, BMP 10/17/18 05:30 10/17/18 05:30 INR, PTT INR 1.12 (0.83-1.09) H 10/16/18 08:55 Problem List - Problems (1) HTN (hypertension) Code(s): I10 - ESSENTIAL (PRIMARY) HYPERTENSION (2) Hypercholesterolemia Code(s): E78.00 - PURE HYPERCHOLESTEROLEMIA, UNSPECIFIED (3) Aortic valve stenosis Code(s): I35.0 - NONRHEUMATIC AORTIC (VALVE) STENOSIS Qualifiers: Cardiac valve disease etiology: nonrheumatic Qualified Code(s): I35.0 - Nonrheumatic aortic (valve) stenosis (4) Mitral valve regurgitation Code(s): I34.0 - NONRHEUMATIC MITRAL (VALVE) INSUFFICIENCY Qualifiers: Cardiac valve disease etiology: nonrheumatic Qualified Code(s): I34.0 - Nonrheumatic mitral (valve) insufficiency (5) Pelvic fracture Code(s): S32.9XXA - FRACTURE OF UNSP PARTS OF LUMBOSACRAL SPINE AND PELVIS, INIT (6) Syncope and collapse Code(s): R55 - SYNCOPE AND COLLAPSE Assessment/Plan 1. Post mechanical fall resulting in pubic ramus fracture 2. Syncope 3. Moderate (prior echocardiography) 4. HTN 5. Hypercholesterolemia 6. Dementia PLAN: 1. Patient is currently admitted here. Orthopedic input noted 2. Transthoracic echocardiography to assess aortic stenosis in addition to other valvular and LV/RV function 3. Continue ACEI as tolerated 4. Statin therapy may be continued 5. Fall precaution Further plans are to follow. Giuseppe Mcdaniel MD
[2018-10-17] MEDS: RAMIPRIL 2.5 MG CAPSULE (FP) PO SCH (10:58)
[2018-10-17] MEDS: DONEPEZIL HCL 5 MG TABLET (FP) PO SCH (10:58)
[2018-10-17] MEDS: ESCITALOPRAM OXALATE 10 MG TABLET (FP) PO SCH (10:58)
--- NOTE | 2018-10-17 11:38 | PN ---
Teaching Attending Note Name of Resident: Don Strong ATTENDING PHYSICIAN STATEMENT I saw and evaluated the patient. I reviewed the resident's note and discussed the case with the resident. I agree with the resident's findings and plan as documented. SUBJECTIVE:currently asymptomatic. reports no pain. 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 Syncope vs mechanical fall- clinically stable. concern for syncope due to suspected severe . echo pending. may need valve surgery. cardio on board 2. Acute pelvic fracture- right inferior pubic ramus and ischiopubic junction fracture due to fall. appreciate ortho input. WBAT. pain control. PT eval for possible ANGEL. 3. Leukcytosis- likely reactive. now resolved. still unable to obtain UA. may need straight cath. will hold abx at this time 4. ANemia- likely dilutional. no signs of bleeding. no indication for transfusion 5. HTN- resume home medications 6. Dyslipidemia- statin 7. dementia- pleasantly confused 8. DVT ppx- hep sq 9. PT eval. may benefit from ANGEL. family agreeable
--- NOTE | 2018-10-17 12:40 | PN ---
Physical Exam: SUBJECTIVE: 88 y/o female with PMH HTN, HLD, dementia, depression, and aortic stenosis whom presented s/p fall and syncopal episode found to have pelvic fracture x2. Pt seen at bedside today, restrained by posi. Overnight pt was agitated, removed cardiac monitoring leads, and was getting out of bed. Rapid response called and haldol given. OBJECTIVE: Vital Signs Period Temp Pulse Resp BP Sys/Marks Pulse Ox Last 24 Hr 98.0 F-98.7 F 73-96 18-20 133-185/64-93 93-95 GENERAL: AOx2 to person and place, in no acute distress, fidgeting in bed. HEAD: NCAT EYES: MORALES, EOMI, conjunctiva clear. ENT: Ears normal, nares patent, oropharynx clear without exudates. Moist mucous membranes. NECK: Normal range of motion, supple without lymphadenopathy, JVD, or masses. LUNGS: CTAB. No wheezes, and no crackles. No accessory muscle use. HEART: RRR s1 s2 systolic murmur ABDOMEN: Soft, BS present in all 4 quadrants, non-distended, no JVD, MUSCULOSKELETAL: No bony deformities or tenderness. No CVA tenderness. UPPER EXTREMITIES: 2+ pulses, warm, well-perfused. No cyanosis. No clubbing. No peripheral edema. LOWER EXTREMITIES: 2+ pulses, warm, well-perfused. No calf tenderness. No peripheral edema. NEUROLOGICAL: Cranial nerves II-XII intact. Normal speech. Gait not appreciated. PSYCHIATRIC: Cooperative. Good eye contact. Appropriate mood and affect. SKIN: Warm, dry, normal turgor, no rashes or lesions noted, normal capillary refill. Laboratory Results - last 24 hr 10/16/18 10/17/18 10/17/18 14:36 05:30 05:30 WBC 9.5 RBC 3.76 Hgb 10.5 L Hct 31.7 L MCV 84.4 MCH 27.8 MCHC 33.0 RDW 15.3 Plt Count 171 MPV 9.0 Absolute Neuts (auto) 7.7 Neutrophils % 81.8 Lymphocytes % 10.8 D Monocytes % 6.1 Eosinophils % 0.9 D Basophils % 0.4 Nucleated RBC % 0 Sodium 141 Potassium 4.0 Chloride 106 Carbon Dioxide 30 Anion Gap 5 L BUN 14.2 Creatinine 0.5 L Est GFR (CKD-EPI)AfAm 99.45 Est GFR (CKD-EPI)NonAf 85.81 Random Glucose 93 Calcium 8.6 Blood Type O POSITIVE Active Medications Acetaminophen (Tylenol -) 650 mg PO Q4H PRN PRN Reason: PAIN Last Admin: 10/16/18 20:34 Dose: 650 mg Atorvastatin Calcium (Lipitor -) 10 mg PO HS [facility] Last Admin: 10/16/18 22:44 Dose: 10 mg Donepezil HCl (Aricept -) 5 mg PO DAILY [facility] Last Admin: 10/17/18 10:58 Dose: 5 mg Escitalopram Oxalate (Lexapro -) 10 mg PO DAILY [facility] Last Admin: 10/17/18 10:58 Dose: 10 mg Heparin Sodium (Porcine) (Heparin -) 5,000 unit SQ TID [facility] Last Admin: 10/17/18 06:04 Dose: 5,000 unit Ramipril (Altace -) 2.5 mg PO DAILY [facility] Last Admin: 10/17/18 10:58 Dose: 2.5 mg ASSESSMENT/PLAN: 88 y/o female with PMH HTN, HLD, dementia, depression, and aortic stenosis whom presented s/p fall and syncopal episode found to have pelvic fracture x2. # Syncope vs mechanical fall - Clinically stable - Concern for syncope d/t suspected severe - Echo pending - May need valve surgery - Cardio consulted: Transthoracic echocardiography to assess aortic stenosis in addition to other valvular and LV/RV function - Cont. ACEi as tolerated - Cont. statin therapy # Acute pelvic fracture - RIGHT inferior pubic ramus and ischiopubic junction fracture d/t fall - PT eval for possible ANGEL. - Ortho consulted: full pain free ROM of B/L LE. Nontender throughout. WBAT with walker. D/c to rehab from ortho standpoint - Pain control w tylenol # Leukcytosis, resolved - Most likely reactive - Unable to obtain UA - May need straight cath - Will hold abx at this time # Anemia - Most likely dilutional - No signs of bleeding - No indication for transfusion # HTN - Cont. curent home regimen # HLD - Cont. curent home regimen # Dementia - Reorient often # DVT prophylaxis - Heparin # Disposition - F/u echo and refer to [facility] - Family agreeable ANGEL after Don Strong MD Visit type - Emergency Visit Emergency Visit: No - New Patient This patient is new to me today: Yes Date on this admission: 10/17/18 - Critical Care Critical Care patient: No - Discharge Referral Referred to [facility] Med P.C[facility] No ATTENDING PHYSICIAN STATEMENT I saw and evaluated the patient. I reviewed the resident's note and discussed the case with the resident. I agree with the resident's findings and plan as documented. SUBJECTIVE: OBJECTIVE: ASSESSMENT AND PLAN:
--- NOTE | 2018-10-17 17:08 | EKG ---
Test Reason : Blood Pressure : / mmHG Vent. Rate : 068 BPM Atrial Rate : 068 BPM P-R Int : 126 ms QRS Dur : 100 ms QT Int : 454 ms P-R-T Axes : 061 -36 004 degrees QTc Int : 482 ms NORMAL SINUS RHYTHM POSSIBLE LEFT ATRIAL ENLARGEMENT LEFT AXIS DEVIATION LEFT VENTRICULAR HYPERTROPHY ABNORMAL ECG WHEN COMPARED WITH ECG OF 02-JUL-2017 08:36, NO SIGNIFICANT CHANGE WAS FOUND Confirmed by JUDD COVARRUBIAS MD ([id number]) on 10/17/2018 5:08:13 PM Referred By: Confirmed By:JUDD COVARRUBIAS MD
[2018-10-17] MEDS: ATORVASTATIN CA 10 MG TABLET (FP) PO SCH (21:43)
[2018-10-18] MEDS: HEPARIN NA (PORCINE) 5,000 UNITS/ML 1ML VIAL SQ SCH ×3 (06:02→22:11)
[2018-10-18 06:48] LABS: BASO % 0.4 % (0-2.0); EOS % 2.1 % (0-4.5); HEMOGLOBIN 10.3 GM/dL (10.7-15.3); LYMPH % 19.7 % (8-40); MCH 27.6 pg (25.7-33.7); MCHC 33.1 g/dl (32.0-36.0); MEAN CELL VOLUME 83.6 fl (80-96); MEAN PLT VOLUME 8.7 fl (7.5-11.1); MONO % 7.3 % (3.8-10.2); NEUT % 70.5 % (42.8-82.8); PLATELET COUNT 195 K/MM3 (134-434); RBC 3.71 M/mm3 (3.60-5.2); RDW 15.3 % (11.6-15.6); WHITE BLOOD COUNT 7.4 K/mm3 (4.0-10.0)
[2018-10-18 07:05] LABS: ALBUMIN 2.9 g/dl (3.4-5.0); BILIRUBIN,TOTAL 1.2 mg/dL (0.2-1); BLOOD UREA NITROGEN 14.5 mg/dL (7-18); CALCIUM 8.6 mg/dL (8.5-10.1); CREATININE 0.5 mg/dL (0.55-1.3); MAGNESIUM 2.1 mg/dL (1.8-2.4); PHOSPHOROUS 3.9 mg/dL (2.5-4.9); POTASSIUM 4.3 mmol/L (3.5-5.1); TOT PROT 5.8 g/dl (6.4-8.2)
[2018-10-18] MEDS: DONEPEZIL HCL 5 MG TABLET (FP) PO SCH (10:41)
[2018-10-18] MEDS: RAMIPRIL 2.5 MG CAPSULE (FP) PO SCH (10:41)
[2018-10-18] MEDS: ESCITALOPRAM OXALATE 10 MG TABLET (FP) PO SCH (10:41)
--- NOTE | 2018-10-18 12:29 | PN ---
Teaching Attending Note Name of Resident: Don Strong ATTENDING PHYSICIAN STATEMENT I saw and evaluated the patient. I reviewed the resident's note and discussed the case with the resident. I agree with the resident's findings and plan as documented. SUBJECTIVE:asymptomatic. denies CP, SOB, fever, chills, N/V/C/D OBJECTIVE: Last Vital Signs Temp Pulse Resp BP Pulse Ox 98 F 78 20 146/78 95 10/18/18 05:24 10/18/18 05:24 10/17/18 22:55 10/18/18 05:24 10/17/18 20:39 general NAD CV S1 S2 RRR +murmur lungs CTA B/L no wheezing/rales/rhonchi ASSESSMENT AND PLAN: 88yo F wtih PMH hypertension, hyperlipidemia, dementia, depression, aortic stenosis, presents after a syncopal episode and found to have pelvic fracture x2 1. Syncope vs mechanical fall- clinically stable. concern for syncope due to suspected severe . echo pending. may need valve surgery. cardio on board 2. Acute pelvic fracture- right inferior pubic ramus and ischiopubic junction fracture due to fall. appreciate ortho input. WBAT. pain control. would benefit from ANGEL 3. Leukcytosis- likely reactive. now resolved. still unable to obtain UA. may need straight cath. will hold abx at this time 4. ANemia- likely dilutional. no signs of bleeding. no indication for transfusion 5. HTN- resume home medications 6. Dyslipidemia- statin 7. dementia- pleasantly confused 8. DVT ppx- hep sq 9. Ambulated only 20ft with PT and would benefit from ANGEL. CM to send JUSTINA today
--- NOTE | 2018-10-18 12:36 | ECHO ---
Name: LUPE NOLASCO Exam:Adult Echocardiogram Study Date: 10/18/2018 10:05 AM Age: 88 yrs Reason For Study: syncopal episode Height: 66 in Weight: 150 lb BSA: 1.8 m2 MMode/2D Measurements & Calculations LVIDd: 3.8 cm Ao root diam: 3.3 cm LVIDs: 2.5 cm LA dimension: 5.0 cm LVPWd: 0.73 cm LVPWs: 0.73 cm EDV(Teich): 60.3 ml ESV(Teich): 21.8 ml LVOT diam: 2.0 cm Doppler Measurements & Calculations MV E max jarrett: 77.7 cm/sec Ao V2 max: 279.0 cm/sec MV A max jarrett: 132.9 cm/sec Ao max P.1 mmHg MV E/A: 0.58 Ao V2 mean: 206.3 cm/sec Ao mean P.8 mmHg Ao V2 VTI: 61.7 cm JH(I,D): 1.2 cm2 JH(V,D): 1.2 cm2 LV V1 max P.2 mmHg SV(LVOT): 75.3 ml LV V1 mean P.3 mmHg LV V1 max: 102.8 cm/sec LV V1 mean: 72.6 cm/sec LV V1 VTI: 24.0 cm TR max jarrett: 259.8 cm/sec Med Peak E' Jarrett: 4.1 cm/sec TR max P.0 mmHg Med E/e': 19.1 Lat Peak E' Jarrett: 6.7 cm/sec Lat E/e': 11.6 Procedure A complete two-dimensional transthoracic echocardiogram was performed (2D, M-mode, Doppler and color flow Doppler). Left Ventricle The left ventricle is normal in size. Left ventricular systolic function is normal. Ejection Fraction = 60- 65%. Diastolic dysfunction, Grade II, consistent with elevated left atrial pressure. Ratio E/E'= 16. No regional wall motion abnormalities noted. Right Ventricle The right ventricle is normal size. The right ventricular systolic function is normal. Atria The left atrium is severely dilated. Right atrial size is normal. Mitral Valve There is moderate mitral annular calcification. There is mild mitral valve thickening. There is moder ate mitral regurgitation. Tricuspid Valve The tricuspid valve is normal in structure and function. No tricuspid regurgitation. Aortic Valve The aortic valve is normal in structure and function. No aortic regurgitation is present. Pulmonic Valve The pulmonic valve is not well visualized. Great Vessels The aortic root is normal size. Pericardium/Pleura There is no pericardial effusion. Interpretation Summary The left ventricle is normal in size. Left ventricular systolic function is normal. No regional wall motion abnormalities noted. Ejection Fraction = 60-65%. Diastolic dysfunction, Grade II, consistent with elevated left atrial pressure. Ratio E/E'= 16 The right ventricular systolic function is normal. The left atrium is severely dilated. Right atrial size is normal. There is moderate mitral annular calcification. There is mild mitral valve thickening. There is moderate mitral regurgitation. There is no pericardial effusion. Giuseppe Mcdaniel MD 10/18/2018 12:35 PM
--- NOTE | 2018-10-18 14:31 | PN ---
Progress Note, Physician Chief Complaint: Events noted Not in distress Currently appears comfortable History of Present Illness: Patient was seen and examined. Awake. Chart was reviewed Underlying organic brain/dementia Denies chest pain, SOB or palpitations - Current Medication List Current Medications: Active Medications Acetaminophen (Tylenol -) 650 mg PO Q4H PRN PRN Reason: PAIN Last Admin: 10/16/18 20:34 Dose: 650 mg Atorvastatin Calcium (Lipitor -) 10 mg PO HS [facility] Last Admin: 10/17/18 21:43 Dose: 10 mg Donepezil HCl (Aricept -) 5 mg PO DAILY [facility] Last Admin: 10/18/18 10:41 Dose: 5 mg Escitalopram Oxalate (Lexapro -) 10 mg PO DAILY [facility] Last Admin: 10/18/18 10:41 Dose: 10 mg Heparin Sodium (Porcine) (Heparin -) 5,000 unit SQ TID [facility] Last Admin: 10/18/18 06:02 Dose: 5,000 unit Ramipril (Altace -) 2.5 mg PO DAILY [facility] Last Admin: 10/18/18 10:41 Dose: 2.5 mg - Objective Vital Signs: Vital Signs Temperature 98 F 10/18/18 05:24 Pulse Rate 80 10/18/18 11:00 Respiratory Rate 18 10/18/18 11:00 Blood Pressure 141/58 L 10/18/18 11:00 O2 Sat by Pulse Oximetry (%) 95 10/17/18 20:39 Eyes: Yes: PERRL HENT: Yes: Atraumatic Neck: Yes: Supple Cardiovascular: Yes: Regular Rate and Rhythm, Murmur (YEN), S1, S2 Respiratory: Yes: CTA Bilaterally Gastrointestinal: Yes: Normal Bowel Sounds, Soft. No: Tenderness Edema: No Additional Findings/Remarks: - Review of Systems Constitutional: denies: Chills, Fever Cardiovascular: denies: Chest Pain, Palpitations, Shortness of Breath Respiratory: denies: Cough, Hemoptysis, Orthopnea, PND, SOB, SOB on Exertion Gastrointestinal: denies: Abdominal Pain, Constipation, Diarrhea, Melena, Nausea , Rectal Bleeding, Vomiting Neurological: reports: Syncope. denies: Dizziness, Headache, Seizure Labs: CBC, BMP 10/18/18 05:35 10/18/18 05:35 Problem List - Problems (1) HTN (hypertension) Code(s): I10 - ESSENTIAL (PRIMARY) HYPERTENSION (2) Hypercholesterolemia Code(s): E78.00 - PURE HYPERCHOLESTEROLEMIA, UNSPECIFIED (3) Aortic valve stenosis Code(s): I35.0 - NONRHEUMATIC AORTIC (VALVE) STENOSIS Qualifiers: Cardiac valve disease etiology: nonrheumatic Qualified Code(s): I35.0 - Nonrheumatic aortic (valve) stenosis (4) Mitral valve regurgitation Code(s): I34.0 - NONRHEUMATIC MITRAL (VALVE) INSUFFICIENCY Qualifiers: Cardiac valve disease etiology: nonrheumatic Qualified Code(s): I34.0 - Nonrheumatic mitral (valve) insufficiency (5) Pelvic fracture Code(s): S32.9XXA - FRACTURE OF UNSP PARTS OF LUMBOSACRAL SPINE AND PELVIS, INIT (6) Syncope and collapse Code(s): R55 - SYNCOPE AND COLLAPSE Assessment/Plan 1. Post mechanical fall resulting in pubic ramus fracture 2. Syncope 3. Moderate (prior echocardiography) 4. HTN 5. Hypercholesterolemia 6. Dementia PLAN: 1. Conservative therapy 2. Transthoracic echocardiography to assess aortic stenosis in addition to other valvular and LV/RV function 3. Continue ACEI as tolerated 4. Statin therapy may be continued 5. Fall precaution Further plans are to follow. Giuseppe Mcdaniel MD
--- NOTE | 2018-10-18 16:26 | PN ---
Physical Exam: SUBJECTIVE: 88 y/o female with PMH HTN, HLD, dementia, depression, and aortic stenosis whom presented s/p fall and syncopal episode found to have pelvic fracture x2. Pt seen at bedside today, no longer restrained by posi. Slept well overnight. More alert. Denies NVFCD. OBJECTIVE: Vital Signs Period Temp Pulse Resp BP Sys/Marks Pulse Ox Last 24 Hr 97.3 F-98.9 F 78-81 18-20 133-146/58-78 95 GENERAL: AOx3 to person and place, in no acute distress HEAD: NCAT EYES: MORALES, EOMI, conjunctiva clear. ENT: Ears normal, nares patent, oropharynx clear without exudates. Moist mucous membranes. NECK: Normal range of motion, supple without lymphadenopathy, JVD, or masses. LUNGS: CTAB. No wheezes, and no crackles. No accessory muscle use. HEART: RRR s1 s2 systolic murmur ABDOMEN: Soft, BS present in all 4 quadrants, non-distended, no JVD, MUSCULOSKELETAL: No bony deformities or tenderness. No CVA tenderness. UPPER EXTREMITIES: 2+ pulses, warm, well-perfused. No cyanosis. No clubbing. No peripheral edema. LOWER EXTREMITIES: 2+ pulses, warm, well-perfused. No calf tenderness. No peripheral edema. NEUROLOGICAL: Cranial nerves II-XII intact. Normal speech. Gait not appreciated. PSYCHIATRIC: Cooperative. Good eye contact. Appropriate mood and affect. SKIN: Warm, dry, normal turgor, no rashes or lesions noted, normal capillary refill. Laboratory Results - last 24 hr 10/18/18 10/18/18 05:35 05:35 WBC 7.4 RBC 3.71 Hgb 10.3 L Hct 31.0 L MCV 83.6 MCH 27.6 MCHC 33.1 RDW 15.3 Plt Count 195 MPV 8.7 Absolute Neuts (auto) 5.3 Neutrophils % 70.5 Lymphocytes % 19.7 D Monocytes % 7.3 Eosinophils % 2.1 D Basophils % 0.4 Nucleated RBC % 0 Sodium 141 Potassium 4.3 Chloride 106 Carbon Dioxide 28 Anion Gap 6 L BUN 14.5 Creatinine 0.5 L Est GFR (CKD-EPI)AfAm 99.45 Est GFR (CKD-EPI)NonAf 85.81 Random Glucose 99 Calcium 8.6 Phosphorus 3.9 Magnesium 2.1 Total Bilirubin 1.2 H AST 21 ALT 11 L Alkaline Phosphatase 82 Total Protein 5.8 L Albumin 2.9 L Active Medications Acetaminophen (Tylenol -) 650 mg PO Q4H PRN PRN Reason: PAIN Last Admin: 10/16/18 20:34 Dose: 650 mg Atorvastatin Calcium (Lipitor -) 10 mg PO HS [facility] Last Admin: 10/18/18 22:11 Dose: 10 mg Donepezil HCl (Aricept -) 5 mg PO DAILY [facility] Last Admin: 10/18/18 10:41 Dose: 5 mg Escitalopram Oxalate (Lexapro -) 10 mg PO DAILY [facility] Last Admin: 10/18/18 10:41 Dose: 10 mg Heparin Sodium (Porcine) (Heparin -) 5,000 unit SQ TID [facility] Last Admin: 10/18/18 22:11 Dose: 5,000 unit Ramipril (Altace -) 2.5 mg PO DAILY [facility] Last Admin: 10/18/18 10:41 Dose: 2.5 mg ASSESSMENT/PLAN: 88 y/o female with PMH HTN, HLD, dementia, depression, and aortic stenosis whom presented s/p fall and syncopal episode found to have pelvic fracture x2. # Syncope vs mechanical fall - Clinically stable - Concern for syncope d/t suspected severe - Echo pending - May need valve surgery - Cardio consulted: Transthoracic echocardiography to assess aortic stenosis in addition to other valvular and LV/RV function - Cont. ACEi as tolerated - Cont. statin therapy # Acute pelvic fracture - RIGHT inferior pubic ramus and ischiopubic junction fracture d/t fall - PT eval for possible ANGEL. - Ortho consulted: full pain free ROM of B/L LE. Nontender throughout. WBAT with walker. D/c to rehab from ortho standpoint - Pain control w tylenol # Leukcytosis, resolved - Most likely reactive - Unable to obtain UA - May need straight cath - Will hold abx at this time # Anemia - Most likely dilutional - No signs of bleeding - No indication for transfusion # HTN - Cont. curent home regimen # HLD - Cont. curent home regimen # Dementia - Reorient often # DVT prophylaxis - Heparin # Disposition - F/u echo to determine need for valve replacement - Family agreeable ANGEL after Don Strong MD Visit type - Emergency Visit Emergency Visit: No - New Patient This patient is new to me today: No - Critical Care Critical Care patient: No - Discharge Referral Referred to [facility] Med P.C.: No ATTENDING PHYSICIAN STATEMENT I saw and evaluated the patient. I reviewed the resident's note and discussed the case with the resident. I agree with the resident's findings and plan as documented. SUBJECTIVE: OBJECTIVE: ASSESSMENT AND PLAN:
[2018-10-18] MEDS: ATORVASTATIN CA 10 MG TABLET (FP) PO SCH (22:11)
[2018-10-19 05:49] LABS: EPI CELLS 4.5 /HPF (0-5/HPF); HYALINE CASTS 132 /lpf (0-8); URINE APPEARANCE TURBID; URINE BACTERIA >9000 /hpf (NEGATIVE); URINE BILIRUBIN 1+ (NEGATIVE); URINE COLOR DK YELLOW; URINE GLUCOSE (UA) NEGATIVE (NEGATIVE); URINE KETONE TRACE (NEGATIVE); URINE LEUK ESTERASE 3+ (NEGATIVE); URINE NITRITE NEGATIVE (NEGATIVE); URINE PROTEIN 1+ (NEGATIVE); URINE WBC 2825 /hpf (0-5)
[2018-10-19] MEDS: HEPARIN NA (PORCINE) 5,000 UNITS/ML 1ML VIAL SQ SCH ×2 (05:53→14:31)
[2018-10-19 06:58] LABS: URINE RBC 46.5 /hpf (0-4); YEAST NONE SEEN (NEGATIVE)
[2018-10-19 07:01] LABS: BASO % 0.4 % (0-2.0); EOS % 3.5 % (0-4.5); HEMATOCRIT 30.4 % (32.4-45.2); HEMOGLOBIN 10.2 GM/dL (10.7-15.3); LYMPH % 21.8 % (8-40); MCH 27.8 pg (25.7-33.7); MCHC 33.6 g/dl (32.0-36.0); MEAN CELL VOLUME 82.9 fl (80-96); MEAN PLT VOLUME 8.7 fl (7.5-11.1); MONO % 9.2 % (3.8-10.2); NEUT % 65.1 % (42.8-82.8); PLATELET COUNT 220 K/MM3 (134-434); RBC 3.67 M/mm3 (3.60-5.2); RDW 15.7 % (11.6-15.6); WHITE BLOOD COUNT 6.7 K/mm3 (4.0-10.0)
[2018-10-19 07:20] LABS: ALBUMIN 2.8 g/dl (3.4-5.0); BILIRUBIN,TOTAL 1.5 mg/dL (0.2-1); BLOOD UREA NITROGEN 17.6 mg/dL (7-18); CALCIUM 8.4 mg/dL (8.5-10.1); CREATININE 0.5 mg/dL (0.55-1.3); MAGNESIUM 1.9 mg/dL (1.8-2.4); PHOSPHOROUS 4.1 mg/dL (2.5-4.9); POTASSIUM 3.8 mmol/L (3.5-5.1); TOT PROT 5.7 g/dl (6.4-8.2)
--- NOTE | 2018-10-19 07:44 | PN ---
Progress Note (short form) - Note Progress Note: Chief Complaint: Events noted, notes reviewed, resting in bed, denies any chest pain or dyspnea History of Present Illness: Seen and examined on telemetry. Events noted, notes reviewed, resting in bed, denies any chest pain or dyspnea Echocardiography performed yesterday revealed normal left ventricular size and systolic function with estimated LVEF between 60-65%, left atrial dilatation, moderate mitral valve regurgitation - Current Medication List Current Medications Acetaminophen (Tylenol -) 650 mg PO Q4H PRN PRN Reason: PAIN Last Admin: 10/16/18 20:34 Dose: 650 mg Atorvastatin Calcium (Lipitor -) 10 mg PO HS [facility] Last Admin: 10/18/18 22:11 Dose: 10 mg Donepezil HCl (Aricept -) 5 mg PO DAILY [facility] Last Admin: 10/18/18 10:41 Dose: 5 mg Escitalopram Oxalate (Lexapro -) 10 mg PO DAILY [facility] Last Admin: 10/18/18 10:41 Dose: 10 mg Heparin Sodium (Porcine) (Heparin -) 5,000 unit SQ TID [facility] Last Admin: 10/19/18 05:53 Dose: 5,000 unit Ramipril (Altace -) 2.5 mg PO DAILY [facility] Last Admin: 10/18/18 10:41 Dose: 2.5 mg Review of Systems - Review of Systems Cardiovascular: As noted above Respiratory: denies: denies: Cough or Sputum Production Gastrointestinal: denies: Nausea, Vomiting, Diarrhea, Constipation or Abdominal Discomfort Musculoskeletal: Degenerative Joint Pain Endocrine: no symptoms reported - Objective Vital Signs: Last Vital Signs Temp Pulse Resp BP Pulse Ox 98.9 F 91 H 20 147/98 95 10/19/18 05:46 10/19/18 05:46 10/19/18 05:48 10/19/18 05:46 10/19/18 05:48 Intake & Output 10/16/18 10/17/18 10/18/18 10/19/18 23:59 23:59 23:59 23:59 Intake Total 300 320 350 300 Balance 300 320 350 300 Weight 180 lb Neck: Supple Negative JVD No bruit Cardiovascular: S1 S2 Regular Rate and Rhythm Grade 2-3/6 YEN Respiratory: Diminished Breath Sounds at the Bases Gastrointestinal: Soft Benign Normal Bowel Sounds Ext: No Edema Labs: CBC, BMP 10/19/18 05:50 Hepatic Panel Total Bilirubin 1.5 mg/dL (0.2-1) H 10/19/18 05:50 AST 18 U/L (15-37) 10/19/18 05:50 ALT 12 U/L (13-61) L 10/19/18 05:50 Alkaline Phosphatase 76 U/L (45-117) 10/19/18 05:50 Albumin 2.8 g/dl (3.4-5.0) L 10/19/18 05:50 INR, PTT INR 1.12 (0.83-1.09) H 10/16/18 08:55 Assessment/Plan ASSESSMENT: 1. Post mechanical fall resulting in pubic ramus fracture for conservative medical management 2. Unclear associated syncope with the above-noted presentation 3. 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 Diastolic left ventricular dysfunction with clinical class 0 [place] [employer] classification left ventricular failure 5. Aortic stenosis moderate in severity 6. HTN 7. Hypercholesterolemia 8. Organic brain syndrome/dementia PLAN: 1. Continue Altace therapy 2. Continue Lipitor therapy 3. Consider the addition of beta jewel therapy if blood pressure remains not at goa 4. Recommend repeat echocardiography study in 6 months to a 1 year to assess the above-noted aortic valve pathology (above was reviewed in detail with patient's son Jamie who was contacted via telephone at [phone]) 5. No additional cardiovascular evaluation is indicated at this point Chris Ye MD
[2018-10-19] MEDS: ESCITALOPRAM OXALATE 10 MG TABLET (FP) PO SCH (09:36)
[2018-10-19] MEDS: RAMIPRIL 2.5 MG CAPSULE (FP) PO SCH (09:36)
[2018-10-19] MEDS: DONEPEZIL HCL 5 MG TABLET (FP) PO SCH (09:36)
[2018-10-19 11:07] LABS: BILIRUBIN,DIRECT 0.4 mg/dL (0.0-0.2)
--- NOTE | 2018-10-19 14:29 | PN ---
Teaching Attending Note Name of Resident: Don Strong ATTENDING PHYSICIAN STATEMENT I saw and evaluated the patient. I reviewed the resident's note and discussed the case with the resident. I agree with the resident's findings and plan as documented. SUBJECTIVE: Feels well. No pain. Denies Chest pain/palpitations/lightheadedness OBJECTIVE: Afebrile, Hemodynamically Stable. Last Vital Signs Temp Pulse Resp BP Pulse Ox 98.3 F 76 20 140/72 94 L 10/19/18 10:00 10/19/18 10:00 10/19/18 10:00 10/19/18 10:00 10/19/18 09:00 HEENT - Atraumatic, Normocephalic. Heart - S1, S2, SM lungs - clear to auscultation Abdomen - Soft, non-tender. Bowel Sounds normal. Extremities - no edema, no calf tenderness. Neuro - AAO x 1. Moving all 4 extremities. Laboratory Results - last 24 hr 10/19/18 10/19/18 10/19/18 05:40 05:50 05:50 WBC 6.7 RBC 3.67 Hgb 10.2 L Hct 30.4 L MCV 82.9 MCH 27.8 MCHC 33.6 RDW 15.7 H Plt Count 220 MPV 8.7 Absolute Neuts (auto) 4.3 Neutrophils % 65.1 Lymphocytes % 21.8 Monocytes % 9.2 Eosinophils % 3.5 Basophils % 0.4 Nucleated RBC % 0 Sodium 142 Potassium 3.8 Chloride 105 Carbon Dioxide 27 Anion Gap 10 BUN 17.6 Creatinine 0.5 L Est GFR (CKD-EPI)AfAm 99.45 Est GFR (CKD-EPI)NonAf 85.81 Random Glucose 103 Calcium 8.4 L Phosphorus 4.1 Magnesium 1.9 Total Bilirubin 1.5 H Direct Bilirubin 0.4 H AST 18 ALT 12 L Alkaline Phosphatase 76 Total Protein 5.7 L Albumin 2.8 L Urine Color Dk yellow Urine Appearance Turbid Urine pH 6.0 Ur Specific [place] 1.028 Urine Protein 1+ H Urine Glucose (UA) Negative Urine Ketones Trace H Urine Blood 2+ H Urine Nitrite Negative Urine Bilirubin 1+ H Urine Urobilinogen 2.0 H Ur Leukocyte Esterase 3+ H Urine WBC (Auto) 2825 Urine RBC (Auto) 46.5 Urine Casts (Auto) 132 U Pathogenic Cast Auto None seen U Epithel Cells (Auto) 4.5 Urine Bacteria (Auto) >9000 Urine Yeast (Auto) None seen Current Medications Generic Name Dose Route Start Last Admin Trade Name Trini PRN Reason Stop Dose Admin Acetaminophen 650 mg 10/16/18 14:16 10/16/18 20:34 Tylenol - PO 650 mg Q4H PRN Administration PAIN Atorvastatin Calcium 10 mg 10/16/18 22:00 10/18/18 22:11 Lipitor - PO 10 mg HS BRIAN Administration Donepezil HCl 5 mg 10/16/18 10:00 10/19/18 09:36 Aricept - PO 5 mg DAILY BRIAN Administration Escitalopram Oxalate 10 mg 10/16/18 10:00 10/19/18 09:36 Lexapro - PO 10 mg DAILY [facility]AN Administration Heparin Sodium (Porcine) 5,000 unit 10/15/18 22:00 10/19/18 05:53 Heparin - SQ 5,000 unit TID BRIAN Administration Ramipril 2.5 mg 10/16/18 10:00 10/19/18 09:36 Altace - PO 2.5 mg DAILY [facility] Administration Home Medications Medication Instructions Recorded Simvastatin 20 mg PO DAILY 07/15/11 Cholecalciferol (Vitamin D3) 2,000 unit PO DAILY 10/15/18 [Vitamin D3 -] Donepezil HCl [Aricept -] 5 mg PO DAILY 10/15/18 Escitalopram Oxalate [Lexapro -] 10 mg PO DAILY 10/15/18 Ramipril [Altace] 2.5 mg PO DAILY 10/15/18 Cefuroxime Axetil [Ceftin -] 250 mg PO BID 3 Days #6 tablet 10/19/18 ASSESSMENT AND PLAN: 88 year old female with Dementia, HTN, HLD, Depression, Aortic Stenosis, presents s/p syncope/fall, found to have pubic rami fractures. 1. Possible Syncope versus mechanical fall CT Head negative foacute findings. Echo - Grade II diastolic dysfunction, EF 60-65%. moderate . 2. Acute Pelvic Fracture - R inferior pubic ramus and ischiopubic junction Evaluated by Ortho - no intervention required. PT/SNF placement. 3. HTN - Continue Ramipril 4. HLD - Continue Statin. 5. Dementia - continue Aricept and Lexapro. 6. UTI as suggested on UA. Will treat empirically with Cephalosporin pending Urine Cx. 7. R Adnexal Cystic structure on CT - incidental finding - for PCP referral to Gynecology as outpatient. DVT Px - Heparin SQ.
[2018-10-19 15:34] VITALS: TEMP 99.2
[2018-10-19 15:51] VITALS: BP 130/68; PULSE 78
--- NOTE | 2018-10-19 16:26 | DS ---
Physical Exam: SUBJECTIVE: Patient seen and examined OBJECTIVE: Vital Signs Period Temp Pulse Resp BP Sys/Marks Pulse Ox Last 24 Hr 97.8 F-99.2 F 72-91 20-22 123-154/64-98 94-95 PHYSICAL EXAM GENERAL: The patient is awake, alert, and fully oriented, in no acute distress. HEAD: Normal with no signs of trauma. EYES: PERRL, extraocular movements intact, sclera anicteric, conjunctiva clear. ENT: Ears normal, nares patent, oropharynx clear without exudates, moist mucous membranes. NECK: Trachea midline, full range of motion, supple. LUNGS: Breath sounds equal, clear to auscultation bilaterally, no wheezes, no crackles, no accessory muscle use. HEART: Regular rate and rhythm, S1, S2 without murmur, rub or gallop. ABDOMEN: Soft, nontender, nondistended, normoactive bowel sounds, no guarding, no rebound, no hepatosplenomegaly, no masses. EXTREMITIES: 2+ pulses, warm, well-perfused, no edema. NEUROLOGICAL: Cranial nerves II through XII grossly intact. Normal speech, gait not observed. PSYCH: Normal mood, normal affect. SKIN: Warm, dry, normal turgor, no rashes or lesions noted. LABS Laboratory Results - last 24 hr 10/19/18 10/19/18 10/19/18 05:40 05:50 05:50 WBC 6.7 RBC 3.67 Hgb 10.2 L Hct 30.4 L MCV 82.9 MCH 27.8 MCHC 33.6 RDW 15.7 H Plt Count 220 MPV 8.7 Absolute Neuts (auto) 4.3 Neutrophils % 65.1 Lymphocytes % 21.8 Monocytes % 9.2 Eosinophils % 3.5 Basophils % 0.4 Nucleated RBC % 0 Sodium 142 Potassium 3.8 Chloride 105 Carbon Dioxide 27 Anion Gap 10 BUN 17.6 Creatinine 0.5 L Est GFR (CKD-EPI)AfAm 99.45 Est GFR (CKD-EPI)NonAf 85.81 Random Glucose 103 Calcium 8.4 L Phosphorus 4.1 Magnesium 1.9 Total Bilirubin 1.5 H Direct Bilirubin 0.4 H AST 18 ALT 12 L Alkaline Phosphatase 76 Total Protein 5.7 L Albumin 2.8 L Urine Color Dk yellow Urine Appearance Turbid Urine pH 6.0 Ur Specific [place] 1.028 Urine Protein 1+ H Urine Glucose (UA) Negative Urine Ketones Trace H Urine Blood 2+ H Urine Nitrite Negative Urine Bilirubin 1+ H Urine Urobilinogen 2.0 H Ur Leukocyte Esterase 3+ H Urine WBC (Auto) 2825 Urine RBC (Auto) 46.5 Urine Casts (Auto) 132 U Pathogenic Cast Auto None seen U Epithel Cells (Auto) 4.5 Urine Bacteria (Auto) >9000 Urine Yeast (Auto) None seen HOSPITAL COURSE: Date of Admission:10/16/18 Date of Discharge: 10/19/18 Discharge Summary Reason For Visit: SYNCOPE AND COLLAPSE Current Active Problems Aortic valve stenosis (Acute) HTN (hypertension) (Acute) Hypercholesterolemia (Acute) Mitral valve regurgitation (Acute) Pelvic fracture (Acute) Syncope and collapse (Acute) Condition: Improved - Instructions Diet, Activity, Other Instructions: YOUR VISIT You came to the hospital because you fell. You were admitted to the hospital because it was found you fractured your pelvis. You were seen by a surgeon and a fish cleaner machine tender. It was recommended that you continue bed rest and did not need surgery. You have a heart valve that needs further care. Imaging showed a cyst on your fallopian tube, which caused no symptoms. While here, you were found to have a urinary tract infection. A prescription to treat this has been sent to your pharmacy. You may now go to the rehab facility to continue care. MEDICATIONS Please continue to take your home medications as prescribed. You have 1 *NEW* medication Cefuroxime 500 mg twice a day by mouth for three days for treatment of your UTI ADDITIONAL CARE Please make an appointment to see your primary care provider, Dr. Kinney, 1 week from today. Please make an appointment to see a fish cleaner machine tender, Dr. Dixon, 1 week from today. A referral has been provided. Discuss your heart valve (Aortic Stenosis) further with your fish cleaner machine tender. Please make an appointment to see a surgeon, Dr. Hunt, 1 week from today. A referral has been provided. Please make an appointment with an cover assembler 1 week from today to discuss the fallopian tube cyst found on imaging. If you do not have one, a referral has been provided. ADDITIONAL INFORMATION Please call 911 or come directly to the emergency department if you experience unusual headache, vision change, shortness of breath, chest pain, numbness, tingling, loss of alertness/awareness, loss of function, unusual bleeding or any alarming symptoms. Referrals: Manuel Kinney MD [Primary Care Provider] - 1 Week Trung Hunt MD [Staff Physician] - 1 Week Devi Martell MD [Staff Physician] - Giuseppe Mcdaniel MD [Staff Physician] - 1 Week Disposition: [facility] FACILITY - Home Medications Comprehensive Discharge Medication List: Ambulatory Orders Simvastatin 20 mg PO DAILY 07/15/11 Cholecalciferol (Vitamin D3) [Vitamin D3 -] 2,000 unit PO DAILY 10/15/18 Donepezil HCl [Aricept -] 5 mg PO DAILY 10/15/18 Escitalopram Oxalate [Lexapro -] 10 mg PO DAILY 10/15/18 Ramipril [Altace] 2.5 mg PO DAILY 10/15/18 Cefuroxime Axetil [Ceftin -] 250 mg PO BID 3 Days #6 tablet 10/19/18 - Discharge Referral Referred to [facility] No ATTENDING PHYSICIAN STATEMENT I saw and evaluated the patient. I reviewed the resident's note and discussed the case with the resident. I agree with the resident's findings and plan as documented. SUBJECTIVE: OBJECTIVE: ASSESSMENT AND PLAN:
== END 2018-10-19 17:13 | DRG 312 ==
LOC: JER 13:19 → INTOOBSV 18:57 → JERBED 18:57 → J4W 10-16 14:19 → OBSVTOIN 10-16 14:20 → J4W 10-16 19:04
PROVIDERS: ADMIT Internal Medicine
DX: R55 Syncope and collapse (principal); S32.591A Other specified fracture of right pubis, initial encounter for closed fracture; N39.0 Urinary tract infection, site not specified; F03.90 Unspecified dementia, unspecified severity, without behavioral disturbance, psychotic disturbance, mood disturbance, and anxiety; I10 Essential (primary) hypertension; F32.9 Major depressive disorder, single episode, unspecified; D72.829 Elevated white blood cell count, unspecified; E78.5 Hyperlipidemia, unspecified; I35.0 Nonrheumatic aortic (valve) stenosis; I34.0 Nonrheumatic mitral (valve) insufficiency; D64.9 Anemia, unspecified; W19.XXXA Unspecified fall, initial encounter; Y93.9 Activity, unspecified; Y92.89 Other specified places as the place of occurrence of the external cause; Y99.9 Unspecified external cause status
CPT/HCPCS: 36415; 70450-TC; 71045-TC-FY; 72170-TC-FY; 72192-TC; 73523-TC-FY; 73552-TC-RT-FY; 80048; 80053; 81003; 82248; 82550; 83735; 84100; 84484; 85025; 85027; 85610; 85730; 86850; 86900; 86901; 87086; 87186; 93005; 93010; 93306-TC; 97116-GP; 99284-25; G0378; J0131; J1644; J7030